=== PATIENT | male | born 1935 | race Caucasian/White ===

== ENCOUNTER 2018-10-21 16:16 | Emergency (ER) | payer MEDICARE ==
[2018-10-21 16:42] VITALS: BP 102/50
--- NOTE | 2018-10-21 17:00 | EDM.PDOC ---
ED HPI GENERAL MEDICAL PROBLEM - General Chief Complaint: ENT Problem Stated Complaint: PAIN IN RT SIDE OF FACE AND JAW Time Seen by Provider: 10/21/18 16:58 Source of Information: Reports: Patient, Family History Limitations: Reports: No Limitations - History of Present Illness INITIAL COMMENTS - FREE TEXT/NARRATIVE: HISTORY AND PHYSICAL: History of present illness: patient is an 82-year-old male presents tohe ED with complaint of right ear pain. He was seen by hisprimary care provider 3 days ago and put on Ciprodex eardrops. he states the pain has not improved and has a pain across his head and down his jaw. he denies fevers, chills, nausea, vomiting, abdominal pain, diarrhea, chest pain, shortness of breath. Review of systems: As per history of present illness and below otherwise all systems reviewed and negative. Past medical history: As per history of present illness and as reviewed below otherwise noncontributory. Surgical history: As per history of present illness and as reviewed below otherwise noncontributory. Social history: No reported history of drug or alcohol abuse. Family history: As per history of present illness and as reviewed below otherwise noncontributory. Physical exam: General: Patient sitting comfortably in no acute distress and nontoxic appearing HEENT: right ear canal is edematous with otorrhea. Right TM is partially visualized with erythema and bulging. Atraumatic, normocephalic, pupils reactive , negative for conjunctival pallor or scleral icterus, mucous membranes moist, throat clear, neck supple, nontender, trachea midline. No meningeal signs. Lungs: Clear to auscultation, breath sounds equal bilaterally, chest nontender. Heart: S1S2, regular, negative for clicks, rubs, or overt murmur. Abdomen: Soft, nondistended, nontender. Negative for masses or hepatosplenomegaly. Negative for costovertebral tenderness. No rigidity, rebound , guarding. Pelvis: Stable nontender. Genitourinary: Deferred. Rectal: Deferred. Extremities: Atraumatic, negative for cords or calf pain. Neurovascular unremarkable. Neuro: Awake, alert, oriented. Cranial nerves II through XII unremarkable. Cerebellum unremarkable. Motor and sensory unremarkable throughout. Exam nonfocal. Notes: Diagnostics: none Therapeutics: none Prescriptions: doxycycline Impression: otitis media, otitis externa Plan: take antibiotic as instructed. Tylenol as needed as discussed Follow-up with primary care provider Return to ED as needed as discussed Definitive disposition and diagnosis as appropriate pending reevaluation and review of above. Right Ear Pain Score (Numeric/FACES): 10 - Related Data Allergies Allergy/AdvReac Type Severity Reaction Status Date / Time Penicillins Allergy Rash Verified 10/21/18 16:36 Home Meds: Home Meds Albuterol Sulfate [Proair Respiclick] 90 mcg IH Q4HR PRN 05/02/16 [History] Aspirin 81 mg PO DAILY 05/02/16 [History] Budesonide/Formoterol Fumarate [Symbicort 160-4.5 Mcg Inhaler] 1 puff IH BID [History] Carvedilol [Coreg] 6.25 mg PO BID 05/02/16 [History] Isosorbide Mononitrate [Imdur] 30 mg PO DAILY 05/02/16 [History] Niacin [Slo-Niacin] 0.5 tab PO BEDTIME 05/02/16 [History] Nitroglycerin 0.3 mg SL ASDIRECTED PRN 05/02/16 [History] Levofloxacin [Levaquin] 750 mg PO DAILY #7 tablet 05/05/16 [Rx] Oseltamivir [Tamiflu] 30 mg PO BID 2 Days bottle 05/05/16 [Rx] Prednisone [IJD: Prednisone] 10 mg PO DAILY #52 tab 05/05/16 [Rx] Potassium Chloride 10 meq PO DAILY #10 capsule.er 05/10/16 [Rx] Ciprofloxacin/Dexamethasone [Ciprodex Otic Susp] mg PO BID 10/21/18 [History] Clopidogrel [Plavix] 75 mg PO DAILY 10/21/18 [History] Furosemide [Lasix] 60 mg PO BID 10/21/18 [History] atorvaSTATin [Lipitor] 40 mg PO DAILY 10/21/18 [History] Past Medical History HEENT History: Reports: Impaired Vision Cardiovascular History: Reports: Bypass, Hypertension, [place], Stents Respiratory History: Reports: COPD, SOB Gastrointestinal History: Reports: None Genitourinary History: Reports: None Musculoskeletal History: Reports: None Neurological History: Reports: None Psychiatric History: Reports: None Endocrine/Metabolic History: Reports: None Hematologic History: Reports: None Immunologic History: Reports: None Oncologic (Cancer) History: Reports: Lung Dermatologic History: Reports: None - Infectious Disease History Infectious Disease History: Reports: Chicken Pox, Mumps - Past Surgical History Cardiovascular Surgical History: Reports: Coronary Artery Stent, Other (See Below) Respiratory Surgical History: Reports: Lung Resection, Other (See Below) GI Surgical History: Reports: Appendectomy Musculoskeletal Surgical History: Reports: Knee Replacement, Other (See Below) Social & Family History - Family History Family Medical History: Noncontributory HEENT: Reports: Impaired Vision Cardiac: Reports: Bypass, CAD, [place] OBGYN: Reports: Musculoskeletal: Reports: Arthritis Neurological: Reports: CVA Endocrine/Metabolic: Reports: Diabetes, type II Oncologic: Reports: Other (See Below) Other Oncologic Family History: lower back " unknown type" - Tobacco Use Smoking Status *Q: Former Smoker Used Tobacco, but Quit: Yes Month/Year Tobacco Last Used: 2013 - Caffeine Use Caffeine Use: Reports: Soda - Recreational Drug Use Recreational Drug Use: No ED ROS ENT - Review of Systems Review Of Systems: ROS reveals no pertinent complaints other than HPI. ED EXAM, ENT - Physical Exam Exam: See Below (see dictation) Course - Vital Signs Last Recorded V/S: Last Vital Signs Temp 98.3 F 10/21/18 16:39 Pulse 93 10/21/18 16:39 Resp 20 10/21/18 16:39 BP 102/50 L 10/21/18 16:39 Pulse Ox 89 L 10/21/18 16:39 Departure - Departure Time of Disposition: 16:58 Disposition: Home, Self-Care 01 Condition: Good Clinical Impression: Otitis media - Discharge Information Referrals: Chucho Ibarra MD [Primary Care Provider] - Forms: ED Department Discharge Additional Instructions: The following information is given to patients seen in the emergency department who are being discharged to home. This information is to outline your options for follow-up care. We provide all patients seen in our emergency department with a follow-up referral. The need for follow-up, as well as the timing and circumstances, are variable depending upon the specifics of your emergency department visit. If you don't have a primary care physician on staff, we will provide you with a referral. We always advise you to contact your personal physician following an emergency department visit to inform them of the circumstance of the visit and for follow-up with them and/or the need for any referrals to a consulting specialist. The emergency department will also refer you to a specialist when appropriate. This referral assures that you have the opportunity for follow-up care with a specialist. All of these measure are taken in an effort to provide you with optimal care, which includes your follow-up. Under all circumstances we always encourage you to contact your private physician who remains a resource for coordinating your care. When calling for follow-up care, please make the office aware that this follow-up is from your recent emergency room visit. If for any reason you are refused follow-up, please contact the [facility] Emergency Department at and asked to speak to the emergency department charge nurse. [facility] [address] [place] [address] [id number] [facility] [address] [place] [id number] take antibiotic as instructed. Tylenol as needed as discussed Follow-up with primary care provider Return to ED as needed as discussed
== END 2018-10-21 17:15 | disposition home or self-care (01) ==
LOC: MW.ED 16:16
DX: H60.91 Unspecified otitis externa, right ear (principal); H66.91 Otitis media, unspecified, right ear; I10 Essential (primary) hypertension; I25.2 Old myocardial infarction; J44.9 Chronic obstructive pulmonary disease, unspecified; Z87.891 Personal history of nicotine dependence; Z79.899 Other long term (current) drug therapy; Z88.0 Allergy status to penicillin
CPT/HCPCS: 99282

== ENCOUNTER 2018-11-10 10:22 | Emergency (ER) | payer MEDICARE ==
[2018-11-10 10:43] VITALS: PULSE 80
[2018-11-10 11:01] VITALS: BP 110/58
--- NOTE | 2018-11-10 11:11 | EDM.PDOC ---
ED HPI GENERAL MEDICAL PROBLEM - General Chief Complaint: ENT Problem Stated Complaint: UNABLE TO HEAR IN RIGHT EAR Time Seen by Provider: 11/10/18 10:23 Source of Information: Reports: Patient, Family History Limitations: Reports: No Limitations - History of Present Illness INITIAL COMMENTS - FREE TEXT/NARRATIVE: HISTORY AND PHYSICAL: History of present illness: Patient is an 82-year-old male presents to the ED today with concern of right ear hearing loss. Patient states over the past month, he had an ear infection in his right ear. Patient states he was given both an oral antibiotic as well as an antibiotic eardrop. Patient states he's been using the eardrops daily and has finished the oral antibiotic. Patient states he was told he has an ear infection of his eardrum as well as the ear canal. Patient states that he was told this by his primary care provider, Dr. Ibarra about a month ago. Patient states today he decided to come to the ED because his hearing has not improved despite the treatment. Patient states he has not followed up with Dr. Ibarra and has not seen anybody else for his symptoms. Patient denies any other symptoms or concerns at this time. Patient denies fever, chills, chest pain, shortness of breath, or cough. Denies headache, neck stiff ness, change in vision, syncope, or near syncope. Denies nausea, vomiting, abdominal pain, diarrhea, constipation, or dysuria. Has not noted any blood in urine or stool. Patient has been eating and drinking appropriately. Review of systems: As per history of present illness and below otherwise all systems reviewed and negative. Past medical history: As per history of present illness and as reviewed below otherwise noncontributory. Surgical history: As per history of present illness and as reviewed below otherwise noncontributory. Social history: See social history for further information Family history: As per history of present illness and as reviewed below otherwise noncontributory. Physical exam: General: Patient is alert, oriented, and in no acute distress. Patient sitting comfortably on exam table. HEENT: Atraumatic, normocephalic, pupils equal and reactive bilaterally, negative for conjunctival pallor or scleral icterus, mucous membranes moist, throat clear, neck supple, nontender, trachea midline. No drooling or trismus noted. No meningeal signs. No hot potato voice noted. Left TM is within normal limits. Right TM has white granulation tissue covering the TM and TM is unable to be visualized. No erythema/edema noted of the canal. Negative mastoid tenderness bilaterally. Negative pain with palpation of tragus or movement of auricle. Lungs: Clear to auscultation, breath sounds equal bilaterally, chest nontender. Heart: S1S2, regular rate and rhythm without overt murmur Abdomen: Soft, nondistended, nontender. Negative for masses or hepatosplenomegaly. Negative for costovertebral tenderness. Pelvis: Stable nontender. Genitourinary: Deferred. Rectal: Deferred. Skin: Intact, warm, dry. No lesions or rashes noted. Extremities: Atraumatic, negative for cords or calf pain. Neurovascular unremarkable. Neuro: Awake, alert, oriented. Cranial nerves II through XII unremarkable. Cerebellum unremarkable. Motor and sensory unremarkable throughout. Exam nonfocal. Notes: Dr. Mayfield directly involved in patient care. Discussed the importance for follow-up with an ENT specialist Dr. Armando. Referral has been generated and information provided to patient to contact them early in the morning tomorrow for an appointment. Voices understanding and is agreeable to plan of care. Denies any further questions or concerns at this time. Diagnostics: None Therapeutics: None Prescription: None Impression: Right otitis externa, chronic Plan: 1. You can alternate ibuprofen and Tylenol as directed for pain and discomfort. 2. Follow-up with the ENT specialist, Dr. Armando, as discussed. You can call his clinic in the morning for an appointment. His information is provided above for you. 3. Return to the ED as needed and as discussed. Definitive disposition and diagnosis as appropriate pending reevaluation and review of above. - Related Data Allergies Allergy/AdvReac Type Severity Reaction Status Date / Time Penicillins Allergy Rash Verified 11/10/18 10:38 Home Meds: Home Meds Albuterol Sulfate [Proair Respiclick] 90 mcg IH Q4HR PRN 05/02/16 [History] Aspirin 81 mg PO DAILY 05/02/16 [History] Budesonide/Formoterol Fumarate [Symbicort 160-4.5 Mcg Inhaler] 1 puff IH BID [History] Carvedilol [Coreg] 6.25 mg PO BID 05/02/16 [History] Isosorbide Mononitrate [Imdur] 30 mg PO DAILY 05/02/16 [History] Niacin [Slo-Niacin] 0.5 tab PO BEDTIME 05/02/16 [History] Nitroglycerin 0.3 mg SL ASDIRECTED PRN 05/02/16 [History] Levofloxacin [Levaquin] 750 mg PO DAILY #7 tablet 05/05/16 [Rx] Oseltamivir [Tamiflu] 30 mg PO BID 2 Days bottle 05/05/16 [Rx] Prednisone [IJD: Prednisone] 10 mg PO DAILY #52 tab 05/05/16 [Rx] Potassium Chloride 10 meq PO DAILY #10 capsule.er 05/10/16 [Rx] Ciprofloxacin/Dexamethasone [Ciprodex Otic Susp] 1 mg PO BID 10/21/18 [History] Clopidogrel [Plavix] 75 mg PO DAILY 10/21/18 [History] Furosemide [Lasix] 60 mg PO BID 10/21/18 [History] atorvaSTATin [Lipitor] 40 mg PO DAILY 10/21/18 [History] Past Medical History HEENT History: Reports: Impaired Vision Cardiovascular History: Reports: Bypass, Hypertension, [place], Stents Respiratory History: Reports: COPD, SOB Gastrointestinal History: Reports: None Genitourinary History: Reports: None Musculoskeletal History: Reports: None Neurological History: Reports: None Psychiatric History: Reports: None Endocrine/Metabolic History: Reports: None Hematologic History: Reports: None Immunologic History: Reports: None Oncologic (Cancer) History: Reports: Lung Dermatologic History: Reports: None - Infectious Disease History Infectious Disease History: Reports: Chicken Pox, Measles, Mumps, Shingles - Past Surgical History Cardiovascular Surgical History: Reports: Coronary Artery Stent, Other (See Below) Respiratory Surgical History: Reports: Lung Resection, Other (See Below) GI Surgical History: Reports: Appendectomy Musculoskeletal Surgical History: Reports: Knee Replacement, Other (See Below) Social & Family History - Family History Family Medical History: Noncontributory HEENT: Reports: Impaired Vision Cardiac: Reports: Bypass, CAD, [place] OBGYN: Reports: Musculoskeletal: Reports: Arthritis Neurological: Reports: CVA Endocrine/Metabolic: Reports: Diabetes, type II Oncologic: Reports: Other (See Below) Other Oncologic Family History: lower back " unknown type" - Tobacco Use Smoking Status *Q: Former Smoker Years of Tobacco use: 60 Packs/Tins Daily: 1 Used Tobacco, but Quit: Yes Month/Year Tobacco Last Used: 4year - Caffeine Use Caffeine Use: Reports: Coffee - Recreational Drug Use Recreational Drug Use: No ED ROS GENERAL - Review of Systems Review Of Systems: ROS reveals no pertinent complaints other than HPI. ED EXAM, GENERAL - Physical Exam Exam: See Below (see dictation) Course - Vital Signs Last Recorded V/S: Last Vital Signs Temp 36.3 C 11/10/18 10:41 Pulse 80 11/10/18 10:41 Resp 18 11/10/18 10:41 BP 110/58 L 11/10/18 11:00 Pulse Ox 96 11/10/18 10:41 Departure - Departure Time of Disposition: 11:09 Disposition: Home, Self-Care 01 Clinical Impression: Otitis externa Qualifiers: Otitis externa type: unspecified type Chronicity: chronic Laterality: right Qualified Code(s): H60.61 - Unspecified chronic otitis externa, right ear - Discharge Information Instructions: Otitis Externa, [id number] Referrals: Chucho Ibarra MD [Primary Care Provider] - Forms: ED Department Discharge Additional Instructions: The following information is given to patients seen in the emergency department who are being discharged to home. This information is to outline your options for follow-up care. We provide all patients seen in our emergency department with a follow-up referral. The need for follow-up, as well as the timing and circumstances, are variable depending upon the specifics of your emergency department visit. If you don't have a primary care physician on staff, we will provide you with a referral. We always advise you to contact your personal physician following an emergency department visit to inform them of the circumstance of the visit and for follow-up with them and/or the need for any referrals to a consulting specialist. The emergency department will also refer you to a specialist when appropriate. This referral assures that you have the opportunity for follow-up care with a specialist. All of these measure are taken in an effort to provide you with optimal care, which includes your follow-up. Under all circumstances we always encourage you to contact your private physician who remains a resource for coordinating your care. When calling for follow-up care, please make the office aware that this follow-up is from your recent emergency room visit. If for any reason you are refused follow-up, please contact the [facility] Emergency Department at and asked to speak to the emergency department charge nurse. [facility] [address] [place] [address] [facility] [address] [place] [id number] [facility] Ears, Nose, and Throat Specialist, Dr. Tyrone Armando [phone] [facility] [id number] 1. You can alternate ibuprofen and Tylenol as directed for pain and discomfort. 2. Follow-up with the ENT specialist, Dr. Armando, as discussed. You can call his clinic in the morning for an appointment. His information is provided above for you. 3. Return to the ED as needed and as discussed.
== END 2018-11-10 11:22 | disposition home or self-care (01) ==
LOC: MW.ED 10:22
DX: H60.61 Unspecified chronic otitis externa, right ear (principal); I10 Essential (primary) hypertension; I25.2 Old myocardial infarction; J44.9 Chronic obstructive pulmonary disease, unspecified; Z95.5 Presence of coronary angioplasty implant and graft; Z79.82 Long term (current) use of aspirin; Z79.899 Other long term (current) drug therapy; Z90.49 Acquired absence of other specified parts of digestive tract; Z87.891 Personal history of nicotine dependence
CPT/HCPCS: 99282

== ENCOUNTER 2019-08-01 14:12 | Emergency (ER) | payer MEDICARE ==
[2019-08-01] MEDS ORDERED: Sodium Chloride 0.9% 2.5 ML Syringe FLUSH PRN (14:42)
[2019-08-01] MEDS ORDERED: Sodium Chloride 0.9% 10 ML Syringe FLUSH PRN (14:42)
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
--- NOTE | 2019-08-01 15:35 | CR ---
Chest: Portable view of the chest was obtained. Comparison: Prior chest x-ray of 05/29/19. Heart is enlarged. Upper mediastinum is normal. Sternotomy is noted from prior CABG. pacemaker is present. Diffuse increased lung markings are seen on both sides of the chest which appear stable. No definite acute parenchymal change is seen. Bony structures are grossly intact with old healed bilateral rib fractures being seen. Impression: 1. Cardiomegaly. Diffuse increased lung markings. Prior CABG. These findings are all stable from prior exam. 2. Nothing acute is definitely appreciated. Diagnostic code #2
[2019-08-01 15:46] LABS: CARBON DIOXIDE,CO2 21.5 mmol/L (21.0-32.0); POTASSIUM,K 4.3 mmol/L (3.5-5.1)
[2019-08-01] MEDS ORDERED: Furosemide 40 MG/4 ML VIAL IVPUSH ONE (16:12)
[2019-08-01] MEDS ORDERED: Furosemide 20 MG/2 ML VIAL IVPUSH ONE (16:13)
[2019-08-01] MEDS ORDERED: Furosemide 40 MG/4 ML VIAL ONE (16:59)
[2019-08-01] MEDS ORDERED: Sodium Chloride 0.9% 1,000 ML IV ONE (17:18)
[2019-08-01 17:49] VITALS: BP 118/48
[2019-08-01 18:00] VITALS: PULSE 111
== END 2019-08-01 18:28 ==
LOC: MW.ED 14:12
DX: I95.9 Hypotension, unspecified (principal); D64.9 Anemia, unspecified; T82.199A Other mechanical complication of unspecified cardiac device, initial encounter; R79.89 Other specified abnormal findings of blood chemistry; I13.0 Hypertensive heart and chronic kidney disease with heart failure and stage 1 through stage 4 chronic kidney disease, or unspecified chronic kidney disease; I50.9 Heart failure, unspecified; N18.9 Chronic kidney disease, unspecified; F41.9 Anxiety disorder, unspecified; I48.91 Unspecified atrial fibrillation; I25.2 Old myocardial infarction; J44.9 Chronic obstructive pulmonary disease, unspecified; Z88.0 Allergy status to penicillin; Z79.82 Long term (current) use of aspirin; Z79.899 Other long term (current) drug therapy; Z99.81 Dependence on supplemental oxygen
CPT/HCPCS: 36415; 71045; 80053; 81003; 83880; 84484; 85025; 85610; 93005; 96374; 99285; A9270; J1940; J7030